=== PATIENT | male | born 1990 | race African-American/Black ===

== ENCOUNTER 2016-11-09 23:19 | Emergency (ER) | payer BC ==
[~2016-11-09] VITALS: Ht 170.2 cm; Wt 53.5 kg
[2016-11-09 23:28] VITALS: BP 168/85
--- NOTE | 2016-11-09 23:40 | PHYS DOC ---
Past Medical History Past Medical History: Asthma Past Surgical History: No Surgical History Alcohol Use: None Drug Use: None Adult General Chief Complaint Chief Complaint: ITCHING HPI HPI Patient is a 25 year old female presents to the emergency department stating that he was seen at urgent care today. He states that he was diagnosed with a fungal infection and was prescribed nystatin with her medical and cream. He states that he is placed on the area twice today he still states he has some burning and itching and irritation. He denies any drainage or discharge. Denies any rectal stimulation. Denies any fever, chills. Patient states that the area eyes and itches and he is unable to sleep. Review of Systems Review of Systems Constitutional: Denies fever or chills [] Eyes: Denies change in visual acuity, redness, or eye pain [] HENT: Denies nasal congestion or sore throat [] Respiratory: Denies cough or shortness of breath [] Cardiovascular: No additional information not addressed in HPI [] GI: Denies abdominal pain, nausea, vomiting, bloody stools or diarrhea.. Complaint of burning and itching around the anal area. : Denies dysuria or hematuria [] Musculoskeletal: Denies back pain or joint pain [] Integument: Denies rash or skin lesions [] Neurologic: Denies headache, focal weakness or sensory changes [] Endocrine: Denies polyuria or polydipsia [] Allergies Allergies Allergies Coded Allergies Type Severity Reaction Last Updated Verified No Known Drug Allergies 11/09/16 No Physical Exam Physical Exam Constitutional: Well developed, well nourished, no acute distress, non-toxic appearance. [] HENT: Normocephalic, atraumatic, bilateral external ears normal, oropharynx moist, no oral exudates, nose normal. [] Eyes: PERRLA, EOMI, conjunctiva normal, no discharge. [] Neck: Normal range of motion, no tenderness, supple, no stridor. [] Cardiovascular: Patient pink warm and dry. Lungs & Thorax: No respiratory distress noted. Skin: Warm, dry, no erythema, no rash. Skin around the anal area appears to have a raised rash noted however no redness drainage or discharge noted no lesions noted. Back: No tenderness Extremities: No tenderness, no cyanosis, no clubbing, ROM intact, no edema. [] Neurologic: Alert and oriented X 3, normal motor function, normal sensory function, no focal deficits noted. [] Psychologic: Affect normal, judgement normal, mood normal. [] Current Patient Data Vital Signs Vital Signs Date Time Temp Pulse Resp B/P (MAP) Pulse Ox O2 Delivery O2 Flow Rate FiO2 11/09/16 23:28 98.3 106 18 99 Room Air 98.3 EKG EKG [] Radiology/Procedures Radiology/Procedures [] Course & Med Decision Making Course & Med Decision Making Pertinent Labs and Imaging studies reviewed. (See chart for details) Spoke with patient regards to using Benadryl to help with sleep. Explained that this will also help with itching and irritation and may also help with the burning sensation. Patient was also instructed to continue to use the nystatin which were medical and cream. Recommended keeping the anal area clean and dry. Recommended avoiding hot tubs swimming or remaining in any close that are wet. Spoke with patient in regards to using Tucks medicated pads to help with the itching and irritation as well. Patient will be discharged home with recommendations to follow-up with a primary care physician in one week. Signs and symptoms to return back to emergency department has been provided. Patient agrees with discharge instructions treatment regimens and follow-up recommendations. [] Dragon Disclaimer Dragon Disclaimer This electronic medical record was generated, in whole or in part, using a voice recognition dictation system. Departure Departure Impression: Primary Impression: Fungal infection of skin Disposition: 01 HOME, SELF-CARE Condition: STABLE Patient Instructions: Luann Infection, Adult Additional Instructions: Keep the area clean and dry. Continue to use the nystatin with triamcinolone cream. You may use Benadryl to help with drowsiness. This medication may be taken 25 mg every 6 hours as needed. As mentioned this will cause drowsiness do not take any be alert and oriented. Make sure you drink plenty of fluids when taking the Benadryl as is considered an antihistamine and may dry secretions. He may try Tenex medicated pads to help with soothing the area and preventing irritation and burning. Follow-up with her primary care physician in the next week. Return back to emergency department for signs and symptoms of become worse. JESUSITA MEREDITH APRN Nov 09, 2016 23:40
[2016-11-09] MEDS ORDERED: diphenhydrAMINE HCL 25 MG CAPSULE PO ONE (23:45)
== END 2016-11-09 23:50 | disposition home or self-care (01) ==
LOC: ER 23:19
DX: B49 Unspecified mycosis (principal); J45.909 Unspecified asthma, uncomplicated
CPT/HCPCS: 99282; Q0163